=== PATIENT | female | born 1985 | race Caucasian/White ===

== ENCOUNTER 2024-12-11 17:33 | Emergency (ER) | payer BC, OTHER ==
[~2024-12-11] VITALS: Ht 157.5 cm; Wt 122.5 kg
[2024-12-11 18:11] VITALS: TEMP 98.3
[2024-12-11 20:15] VITALS: PULSE 62; RESP 20; O2SAT 100
== END 2024-12-11 20:20 | disposition home or self-care (01) ==
LOC: ER 18:33
DX: S86.811A Strain of other muscle(s) and tendon(s) at lower leg level, right leg, initial encounter (principal); E03.9 Hypothyroidism, unspecified; J45.909 Unspecified asthma, uncomplicated; Z86.718 Personal history of other venous thrombosis and embolism; Z98.84 Bariatric surgery status
CPT/HCPCS: 93971; 99283